=== PATIENT | male | born 1965 | race Caucasian/White ===

== ENCOUNTER 2018-01-21 14:22 | Emergency (ER) | payer OTHER ==
[2018-01-21 14:47] VITALS: BP 148/86; PULSE 80; TEMP 98.9; BMI 27.3
--- NOTE | 2018-01-21 14:48 | PDOC ---
Rapid Medical Evaluation Time Seen by Provider: 01/21/18 14:43 Medical Evaluation: Allergies Allergy/AdvReac Type Severity Reaction Status Date / Time No Known Allergies Allergy Verified 01/21/18 14:43 01/21/18 14:43 Pt presents to the ED after falling off of a ladder on Saturday. He states he fell on his L wrist and has abrasions to the L forearm. Denies hitting his head , LOC. States he fell approximately 8 feet. Went to work yesterda Exam: Pt in sling for L arm, ambulatory Orders: Wrist, forearm, elbow, shoulder x-rays Pt to proceed to ED for fruther evaluation Discharge Disposition - Diagnosis Fall - Referrals - Patient Instructions - Post Discharge Activity
--- NOTE | 2018-01-21 16:00 | PDOC ---
History of Present Illness - General Chief Complaint: Injury Stated Complaint: FALL,LT ARM PAIN Time Seen by Provider: 01/21/18 14:43 History Source: Patient Exam Limitations: Clinical Condition - History of Present Illness Initial Comments: 01/21/18 15:54 Patient with no sig Past medical history present with complain of persistent pain and swelling to left upper extremity from shoulder to left hand with increased pain to left wrist status post fall off a ladder 3 days ago. Denies hitting head or loss of consciousness. Patient reported he slipped off the ladder falling 8 feet to the ground with abrasions to left upper arm from the ladder. Denies any other symptoms Timing/Duration: other (3 days) Past History - Past Medical History Allergies/Adverse Reactions: Allergies Allergy/AdvReac Type Severity Reaction Status Date / Time No Known Allergies Allergy Verified 01/21/18 14:43 Home Medications: Ambulatory Orders Ibuprofen 800 mg PO Q8H PRN #20 tablet 01/21/18 Mupirocin Ointment [Bactroban 2% Ointment -] 1 applic TP BID #1 tube 01/21/18 COPD: No Hypercholesterolemia: Yes - Suicide/Smoking/Psychosocial Hx Smoking History: Never smoked Review of Systems - Review of Systems Able to Perform ROS?: Yes Is the patient limited [place] proficient: No Constitutional: No: Chills, Diaphoresis, Fever, Malaise, Weakness, Other HEENTM: No: Eye Pain, Blurred Vision, Tearing, Recent change in vision, Double Vision, Cataracts, Ear Pain, Ocular Prothesis, Ear Discharge, Nose Pain, Nose Congestion, Tinnitus, Nose Bleeding, Hearing Loss, Throat Pain, Throat Swelling , Mouth Pain, Dental Problems, Difficulty Swallowing, Mouth Swelling, Other Respiratory: No: Cough, Orthopnea, Shortness of Breath, SOB with Exertion, SOB at Rest, Stridor, Wheezing, Productive cough, Hemoptysis, Other Cardiac (ROS): No: Chest Pain, Edema, Irregular Heart Rate, Lightheadedness, Palpitations, Syncope, Chest Tightness, Other ABD/GI: No: Symptoms Reported Musculoskeletal: Yes: See HPI, Joint Pain (left shoulder and wrist), Joint Swelling (left forearm and hands), Muscle Pain (left arm, shoulder and wrist) All Other Systems: Reviewed and Negative *Physical Exam - Vital Signs Last Vital Signs Temp Pulse Resp BP Pulse Ox 98.9 F 80 19 148/86 98 01/21/18 14:43 01/21/18 14:43 01/21/18 14:43 01/21/18 14:43 01/21/18 14:43 - Physical Exam Comments: 01/21/18 15:57 GENERAL: Well developed, well nourished. Awake and alert. No acute distress. MUSCULOSKELETAL : Moderate swelling of left hand and mild forearm. Moderate tenderness to dorsal aspect of left wrist on radial side. Free range of motion of left wrist. No visible bone deformity or open fractures EXTREMITIES: Moderate swelling to left hand and mild forearm No cyanosis. No clubbing. No edema. No calf tenderness. SKIN: Multiple superficial abrasions to left elbow over posterior proximal forearm and olecranon left elbow area Warm and dry. Normal capillary refill. No rashes. No jaundice. NEUROLOGICAL: Alert, awake, appropriate. No motor deficits in the lower extremities. Gait is normal without ataxia. PSYCHIATRIC: Cooperative. Good eye contact. Appropriate mood and affect. 01/21/18 16:20 General Appearance: Yes: Nourished, Appropriately Dressed, Mild Distress Procedures - Splinting Splint Location: Left: Wrist (short arm splint), Forearm Pre-Proc Neuro Vasc Exam: normal Pre-Made Type: aircast Hand-Made Type: fiberglass Splint Type: Yes: Short Arm Post-Proc Neuro Vasc Exam: normal Pedro Luis Bandage: 4" Sling: Yes Complications: No Post splint xray: No Good repositioning: Yes Medical Decision Making - Medical Decision Making 01/21/18 16:17 Patient with no sig Past medical history present for evaluation of persistent left wrist and forearm swelling and pain status post fall off the ladder 3 days ago. Patient denies loss of consciousness or hitting head doing fall. Patient also with complain of abrasion to left elbow from the fall. Exams significant for home moderate swelling to left hand with mild swelling to left forearm. Exam of she shows superficial abrasions to left elbow .X-ray of left arm shoulder open rate shows no acute pathology all showed no elbow. X-ray shows intra-articular commuted fracture of distal radius. Short arm splint applied to left wrist. Abrasion to left elbow cleaned with Betadine and bacitracin applied to wound and wound covered with adhesive bandage. Patient up-to-date on tetanus vaccine .Patient discharged home on NSAIDs and topical Bactroban for wound with orthopedics follow-up. 01/21/18 16:22 *DC/Admit/Observation/Transfer Diagnosis at time of Disposition: Abrasion of left elbow, initial encounter Fall Qualifiers: Encounter type: initial encounter Qualified Code(s): W19.XXXA - Unspecified fall, initial encounter Distal radius fracture, left Qualifiers: Encounter type: initial encounter Fracture type: closed Fracture morphology: other intra-articular Qualified Code(s): S52.572A - Other intraarticular fracture of lower end of left radius, initial encounter for closed fracture Sprain of left shoulder Qualifiers: Encounter type: initial encounter Shoulder sprain type: unspecified sprain Qualified Code(s): S43.402A - Unspecified sprain of left shoulder joint, initial encounter - Discharge Dispostion Disposition: HOME Condition at time of disposition: Stable Decision to Admit order: No - Prescriptions Prescriptions: Ibuprofen 800 mg PO Q8H PRN #20 tablet PRN Reason: pain Mupirocin Ointment [Bactroban 2% Ointment -] 1 applic TP BID #1 tube - Referrals Referrals: Ernie Morris MD [Primary Care Provider] - Rahul Bellamy MD [Staff Physician] - - Patient Instructions Printed Discharge Instructions: How to Use a Sling, Forearm Fracture Additional Instructions: Take medication as prescribed as needed for pain. Follow-up with orthopedics as soon as possible for wrist fracture - Post Discharge Activity
== END 2018-01-21 16:18 | disposition home or self-care (01) ==
LOC: JERFT 14:22
PROC: 2W3DX1Z Immobilization of Left Lower Arm using Splint (ICD-10-PCS; principal; 2018-01-21)
DX: S52.572A Other intraarticular fracture of lower end of left radius, initial encounter for closed fracture (principal); S43.402A Unspecified sprain of left shoulder joint, initial encounter; S50.312A Abrasion of left elbow, initial encounter; W11.XXXA Fall on and from ladder, initial encounter; Y93.89 Activity, other specified; Y92.89 Other specified places as the place of occurrence of the external cause; Y99.8 Other external cause status
CPT/HCPCS: 73030-TC-LT-FY; 73070-TC-LT-FY; 73090-TC-LT-FY; 73110-TC-LR-FY; 73130-TC-LR-FY; 99281-25

== ENCOUNTER 2018-02-05 11:12 | Day surgery (SDC) | payer OTHER ==
[2018-02-04 14:44] VITALS: BMI 27.3
[2018-02-05] MEDS ORDERED: MIDAZOLAM HCL 2 MG/2 ML SINGLE DOSE VIAL ONE ×2 (12:05→12:19)
[2018-02-05] MEDS ORDERED: PROPOFOL 20 ML ONE (12:05)
[2018-02-05] MEDS ORDERED: BUPIVACAINE HCL 0.25% 125 MG/50 ML VIAL ONE (12:16)
[2018-02-05] MEDS ORDERED: BUPIVACAINE HCL/PF (5 MG/ML) 30 ML VIAL IJ ONE (12:19)
[2018-02-05] MEDS ORDERED: ceFAZolin SODIUM 1 GM VIAL ONE (13:18)
[2018-02-05] MEDS ORDERED: oxyCODONE HCL 5 MG TABLET PO PRN (14:10)
[2018-02-05] MEDS ORDERED: ONDANSETRON 4 MG/2 ML VIAL IVPUSH PRN (14:10)
[2018-02-05] MEDS ORDERED: LACTATED RINGERS SOLUTION 1,000 ML IV SCH (14:15)
[2018-02-05 14:53] VITALS: TEMP 97.9
[2018-02-05 15:30] VITALS: BP 119/68; PULSE 70
--- NOTE | 2018-02-06 14:21 | OP ---
DATE OF OPERATION: 02/05/2018 PREOPERATIVE DIAGNOSIS: Left comminuted, displaced, intraarticular distal radius fracture. POSTOPERATIVE DIAGNOSIS: Left comminuted, displaced, intraarticular distal radius fracture. OPERATIVE PROCEDURE: 1. Open reduction and internal fixation of left comminuted, intra-articular, displaced, distal radius fracture with internal fixation of 3 or more fragments. 2. Left brachioradialis tenotomy. SURGEON: Zacarias Oates MD CRUSHING MACHINE OPERATOR: BIANCA Barclay ANESTHESIA: Regional. COMPLICATIONS: None. ESTIMATED BLOOD LOSS: Minimal. INDICATION FOR PROCEDURE: The patient is a 52-year-old male with the above finding indicated for operative treatment. Risks, benefits, and alternatives were discussed with the patient at length. Proper informed consent was obtained. DESCRIPTION OF PROCEDURE: After proper identification of the patient and the correct operative site, patient was brought to the operating room and placed supine on the operating table. All bony prominences were well padded. General anesthesia as well as intravenous antibiotics was given. Timeout procedure was performed. Left upper extremity was prepped and draped in usual sterile fashion. Esmarch bandage to exsanguinate the left upper extremity. Tourniquet was inflated to 250 mmHg. A longitudinal incision was made over the volar aspect of the wrist in line with FCR tendon. Incision was taken sharply through the skin with blunt dissection through the subcutaneous tissues. Flexor carpi radialis along with the contents of the carpal canal were bluntly and gently retracted in an ulnarward direction for the remainder of the procedure. Pronator quadratus was divided and elevated off the fracture. Fracture was found to be comminuted and displaced and was reduced. Brachioradialis tenotomy was necessary to free the radial styloid fragment, and this was done in a subperiosteal fashion. Once the fracture was reduced, it was held with a [employer] distal radius locking plate. Satisfactory reduction was achieved and confirmed radiographically in multiple planes. Distal radioulnar joint and scapholunates were found to be stable. Wound was irrigated and repaired in layers including the pronator quadratus with 4-0 Vicryl and 4-0 Monocryl. Sterile dressings were applied. Splint was placed. Patient was reversed from anesthesia and brought to recovery in stable condition. Santos Maradiaga, the orthopaedic physician assistant, was integral throughout the procedure. Procedure could not have been performed without a skilled operative orthopaedic physician assistant. ZACARIAS OATES M.D. DIANE/[id number]
== END 2018-02-05 15:25 | disposition home or self-care (01) ==
LOC: FASU 11:12
PROVIDERS: ATTEND Orthopaedic Surgery Hand Surgery
PROC: 0LN60ZZ Release Left Lower Arm and Wrist Tendon, Open Approach (ICD-10-PCS; 2018-02-05)
PROC: 0PSJ04Z Reposition Left Radius with Internal Fixation Device, Open Approach (ICD-10-PCS; principal; 2018-02-05 13:27)
DX: S52.532A Colles' fracture of left radius, initial encounter for closed fracture (principal); X58.XXXA Exposure to other specified factors, initial encounter; Y93.9 Activity, unspecified; Y92.9 Unspecified place or not applicable
CPT/HCPCS: 73110-TC-LR-FY